=== PATIENT | male | born 1995 | race Caucasian/White ===

== ENCOUNTER 2024-03-29 20:17 | Outpatient (CLI) | payer SELFPAY | END 2024-03-29 20:18 | disposition home or self-care (01) | LOC: AMB 04-23 09:34 | PROVIDERS: Visit Provider Family Medicine | DX: S00.90XA Unspecified superficial injury of unspecified part of head, initial encounter (principal); V49.3XXA Car occupant (driver) (passenger) injured in unspecified nontraffic accident, initial encounter; Y92.410 Unspecified street and highway as the place of occurrence of the external cause ==